=== PATIENT | male | born 1960 | race Caucasian/White ===

== ENCOUNTER 2020-08-20 09:12 | Outpatient (CLI) | payer OTHER | END 2020-08-20 09:23 | disposition HB | LOC: RAD 09:12 | DX: M51.36 Other intervertebral disc degeneration, lumbar region (principal); M41.20 Other idiopathic scoliosis, site unspecified ==

== ENCOUNTER 2021-02-27 19:44 | Emergency (ER) | payer OTHER ==
[~2021-02-27] VITALS: Ht 182.9 cm; Wt 81.6 kg
[2021-02-27] MEDS ORDERED: FINASTERIDE1 MG (20:01)
[2021-02-27] MEDS ORDERED: ZOLOFT100 MG (20:01)
[2021-02-28] MEDS ORDERED: LEVSIN/SL0.125 MG SL (02:00)
== END 2021-02-28 02:32 | disposition home or self-care (01) ==
LOC: ER 19:44
DX: M54.5 Low back pain (principal); N20.2 Calculus of kidney with calculus of ureter

== ENCOUNTER 2024-05-11 18:47 | Emergency (ER) | payer OTHER ==
[~2024-05-11] VITALS: Ht 180.3 cm; Wt 79.8 kg
[~2024-05-11 18:47] MED LIST: FINASTERIDE1 MG; FINASTERIDE1 MG PO; INTESTINEX680 M1 PO; LEVSIN/SL0.125 MG SL; PEPCID20 MG PO; ZOLOFT100 MG; ZOLOFT50 MG
[2024-05-11] MEDS ORDERED: ONDANSETRON HCL 2 MG/ML VIAL IV ONE (20:00)
[2024-05-11] MEDS ORDERED: HYOSCYAMINE SULFATE 0.125 MG TAB.SUBL SL ONE (20:00)
[2024-05-11 20:13] LABS: HEMATOCRIT 46.3 % (39.0-48.0); HEMOGLOBIN 16.1 g/dL (13-16.00); MEAN CELL VOLUME 91.3 fL (80.0-100.00); MEAN CORPUSCULAR HEMOGLOBIN 31.7 pg (27.00-32.0); MEAN CORPUSCULAR HGB CONC 34.7 g/dl (32.0-36.0); PLATELET COUNT 159 K/uL (150-450); RED BLOOD COUNT 5.07 M/uL (4.00-6.00); RED CELL DISTRIBUTION WIDTH 14.5 % (11.5-14.5)
[2024-05-11 20:25] LABS: ALBUMIN 4.4 gm/dL (3.4-5.0); BILIRUBIN TOTAL 0.95 mg/dL (0.3-1.2); CALCIUM 9.2 mg/dL (8.5-10.1); CREATININE SERUM 1.09 mg/dL (0.70-1.30); GFR 68.32; GLOBULINA 3.6 G/DL (2.4-3.5); POTASSIUM 4.58 mEq/L (3.5-5.1)
== END 2024-05-11 21:26 | disposition home or self-care (01) ==
LOC: ER 18:48
PROVIDERS: General Practice
DX: A09 Infectious gastroenteritis and colitis, unspecified (principal); R10.9 Unspecified abdominal pain; Z88.2 Allergy status to sulfonamides; Z88.6 Allergy status to analgesic agent